=== PATIENT | female | born 1965 | race Caucasian/White ===

== ENCOUNTER → 2023-01-20 | Outpatient (CLI) | payer BC, SELFPAY ==
[2023-01-20 12:49] LABS: Pathologist Comment May follow
[2023-01-20 13:29] LABS: Synovial Fld Mononuclear WBC # 0.503 10^3/ul; Synovial Fld Mononuclear WBC % 89.8 %; Synovial Fld Polynuclear WBC # 0.057 10^3/uL; Synovial Fld Polynuclear WBC % 10.2 %
[2023-01-20 13:38] LABS: RBC /Synovial Fluid 0.007 10^6/uL (0)
[2023-01-20 14:42] LABS: Lymph 8 %; Monocyte /Synovial Fluid 76 %; Neutrophil 16 % (0-25)
[2023-01-20 14:43] LABS: AUTO B FLUID DILUENT BKGD CT WBC <0.1 RBC <0.01 (W<.1,R<.01); CRYSTALS, BODY FLUID NO CRYSTALS SEEN; Source / Synovial Fluid RIGHT KNEE; Source- Body Fluid SYNOVIAL
[2023-01-20 14:44] LABS: Appearance /Synovial Fluid Cloudy (CLEAR); Body Fluid QC Type(s) BF1Q; Color / Synovial Fluid Yellow (Pale Yellow)
[2023-01-21 13:05] LABS: Pathologist Review Reviewed
== END | disposition home or self-care (01) ==
LOC: LABSPEC 12:33
PROVIDERS: PCP Family Medicine; Referring Provider Internal Medicine Rheumatology; Visit Provider Internal Medicine Rheumatology
DX: M06.4 Inflammatory polyarthropathy (principal); M35.00 Sjogren syndrome, unspecified; M79.7 Fibromyalgia; M17.0 Bilateral primary osteoarthritis of knee; K58.0 Irritable bowel syndrome with diarrhea; F41.9 Anxiety disorder, unspecified; F44.5 Conversion disorder with seizures or convulsions; F32.A Depression, unspecified; Z79.899 Other long term (current) drug therapy
CPT/HCPCS: 87070; 87075; 87205; 89050; 89051; 89060

== ENCOUNTER → 2023-05-24 | Outpatient (CLI) | payer BC, SELFPAY ==
--- NOTE | 2023-05-24 17:01 | RAD_ITS ---
INDICATION: BACK PAIN EXAMINATION/TECHNIQUE: X-RAY - XR Spine Lumbar 2 or 3 Views COMPARISON: None. FINDINGS: VERTEBRAE: Preserved vertebral body height. No fracture. No spondylolisthesis. Preservation of the normal lumbar lordosis. Minimal endplate osteophyte formation in the mid and lower lumbar spine. Moderate facet arthropathy L4-5 and L5-S1. DISCS: Disc spaces are maintained. INCLUDED ABDOMEN: Included bowel gas pattern is non-obstructive. RAD/Lumbar Spine 2 or 3 Views IMPRESSION: No evidence of lumbar spinal fracture or spondylolisthesis. Moderate lower lumbar facet arthropathy. Electronically Signed: Jordan Rai MD at 17:10 EDT ,
--- NOTE | 2023-05-24 17:10 | RAD_ITS ---
INDICATION: NECK PAUN EXAMINATION/TECHNIQUE: X-RAY - XR Spine Cervical 2 or 3 Views COMPARISON: None. FINDINGS: VERTEBRAE: Preserved vertebral body height. No fracture or acute compression deformity. No spondylolisthesis. Preservation of the normal cervical lordosis. Mild lower cervical endplate anterior posterior osteophyte formation C5, C6, C7. DISCS: Disc spaces are maintained. NECK SOFT TISSUES: No prevertebral soft tissue widening. LUNG APICES: Clear. RAD/Cerv Spine 2 or 3 Views IMPRESSION: Mild lower cervical endplate degenerative change. Electronically Signed: Jordan Rai MD at 17:08 EDT ,
== END | disposition home or self-care (01) ==
LOC: RAD 17:00
PROVIDERS: Referring Provider Anesthesiology Pain Medicine; Visit Provider Anesthesiology Pain Medicine
DX: M54.2 Cervicalgia (principal)
CPT/HCPCS: 72040; 72100

== ENCOUNTER → 2023-10-11 | Outpatient (CLI) | payer BC, SELFPAY ==
[2023-10-11 17:25] LABS: Amphetamine Urine VISTA NEGATIVE (<1000 ng/mL); Barbiturate Urine VISTA NEGATIVE (< 200 ng/mL); Benzodiazepine Urine VISTA NEGATIVE (< 200 ng/mL); Cocaine Urine VISTA NEGATIVE (< 300 ng/mL); Ecstacy Urine VISTA NEGATIVE (< 500 ng/mL); Methadone Urine VISTA NEGATIVE (< 300 ng/mL); PCP Urine VISTA NEGATIVE (< 25 ng/mL); THC Urine VISTA NEGATIVE (< 50 ng/mL); Vista UDS pH Range 7
== END | disposition home or self-care (01) ==
PROVIDERS: Referring Provider Anesthesiology Pain Medicine; Visit Provider Anesthesiology Pain Medicine
DX: F11.20 Opioid dependence, uncomplicated (principal)
CPT/HCPCS: 80307

== ENCOUNTER → 2024-01-17 | Outpatient (CLI) | payer BC, SELFPAY ==
--- NOTE | 2024-01-17 13:24 | MRI_ITS ---
STUDY: MRI LUMBAR SPINE WITHOUT CONTRAST REASON FOR EXAM: Female, 58 years old. RADICULOPATHY bilat legs, back pain TECHNIQUE: Standardized fat and water weighted pulse sequences were obtained in the sagittal and axial planes. COMPARISON: X-ray 05/24/2023 FINDINGS: T12-L1: Normal endplates. Normal disc height, hydration and morphology. Normal bilateral facet joints. Normal central canal and bilateral lateral recesses. Normal bilateral intervertebral neural foramina. Normal lumbar lordosis. There is no substantial scoliosis. Normal conus medullaris that terminates at the L1/L2. L1-2: Normal endplates. Normal disc height, hydration and morphology. Normal bilateral facet joints. Normal central canal and bilateral lateral recesses. Normal bilateral intervertebral neural foramina. L2-3: Some disc desiccation but no disc protrusion, spinal stenosis, neural foraminal stenosis. L3-4: Normal endplates. Normal disc height, hydration and morphology. Normal bilateral facet joints. Normal central canal and bilateral lateral recesses. Normal bilateral intervertebral neural foramina. L4-5: Moderate bilateral facet hypertrophy and severe ligament flavum hypertrophy. Mild bilateral disc protrusion produces mild spinal stenosis and mild bilateral neural foraminal stenosis. L5-S1: Mild bilateral facet hypertrophy and moderate ligament flavum hypertrophy. Mild broad disc protrusion produces mild spinal stenosis and mild bilateral neural foraminal stenosis. Normal visualized sacral ala. Mild friction related edema in the posterior subcutaneous fat. MRI/Spine Lumbar (Routine) IMPRESSION: Mild degenerative disc disease as described above. Electronically Signed: Balaji Gomez MD at 9:32 EST ,
== END | disposition home or self-care (01) ==
LOC: MRI 13:13
PROVIDERS: Referring Provider Anesthesiology Pain Medicine; Visit Provider Anesthesiology Pain Medicine
DX: M54.16 Radiculopathy, lumbar region (principal)
CPT/HCPCS: 72148

== ENCOUNTER → 2024-04-03 | Outpatient (CLI) | payer BC, SELFPAY ==
[2024-04-03 15:40] LABS: Amphetamine Urine NEGATIVE (<1000 ng/mL); Barbiturate Urine VISTA NEGATIVE (< 200 ng/mL); Benzodiazepine Urine VISTA NEGATIVE (< 200 ng/mL); Cocaine Urine VISTA NEGATIVE (< 300 ng/mL); Ecstacy Urine VISTA NEGATIVE (< 500 ng/mL); Methadone Urine VISTA NEGATIVE (< 300 ng/mL); Opiates Urine POSITIVE (< 300 ng/mL); PCP Urine NEGATIVE (< 25 ng/mL); THC Urine VISTA NEGATIVE (< 50 ng/mL); Vista UDS pH Range 5
== END | disposition home or self-care (01) ==
PROVIDERS: Referring Provider Anesthesiology Pain Medicine; Visit Provider Anesthesiology Pain Medicine
DX: F11.20 Opioid dependence, uncomplicated (principal)
CPT/HCPCS: 36415; 80307

== ENCOUNTER → 2024-10-11 | Outpatient (CLI) | payer BC, SELFPAY ==
[2024-10-11 17:27] LABS: Barbiturate Urine NEGATIVE (< 200 ng/mL); Benzodiazepine Urine NEGATIVE (< 200 ng/mL); PCP Urine NEGATIVE (< 25 ng/mL); THC Urine NEGATIVE (< 50 ng/mL)
== END | disposition home or self-care (01) ==
LOC: LAB 15:11
PROVIDERS: Referring Provider Anesthesiology Pain Medicine; Visit Provider Anesthesiology Pain Medicine
DX: F11.20 Opioid dependence, uncomplicated (principal)
CPT/HCPCS: 80307